=== PATIENT | female | born 1995 | race Caucasian/White ===

== ENCOUNTER 2016-06-30 19:01 | Emergency (ER) | payer MEDICAID ==
[~2016-06-30] VITALS: Ht 157.5 cm; Wt 97.5 kg
[~2016-06-30 19:01] MED LIST: PREN1TAB62 PO
[2016-06-30 19:26] VITALS: Ht 157.5 cm; Wt 97.5 kg
[2016-07-01] MEDS ORDERED: ONDANSETRON (ODT) 4 MG TAB ODT STA (02:17)
[2016-07-01 02:46] LABS: URINE BLOOD (Dip) POC Negative (NEGATIVE)
[2016-07-01] MEDS ORDERED: ONDA4TAB14 PO (04:39)
--- NOTE | 2016-07-01 04:39 | ERD ---
ER Documentation Chief Complaint Date/Time DATE: 07/01/16 TIME: 04:35 Chief Complaint FEVER, EPIGASTRIC ABD PAIN, N/V X 2 DAYS HPI This pleasant 21-year-old female presents to emergency department today with abdominal pain, nausea, and diarrhea 2 days. Patient reports vomiting twice today. Has decreased appetite and pain in her upper stomach with eating. Patient has tried no [id number] medication for symptomatic relief, denies history of GERD, denies any recent travel, denies possibility of contaminated food. ROS All systems reviewed and are negative except as per history of present illness. Medications Home Meds Active Scripts Ondansetron (Ondansetron Odt) 4 Mg Tab.rapdis, 4 MG PO Q6H Y for NAUSEA AND/OR VOMITING, #10 TAB Prov:IFEOMA,JOANNA 07/01/16 Reported Medications Vit-Iron Fumarate-FA ( Vitamin Tablet) 1 Each Tablet, 1 EACH PO DAILY 05/31/13 Allergies Allergies: Coded Allergies: No Known Allergy (Unverified , 05/31/13) PMhx/Soc Medical and Surgical Hx: pt denies Medical Hx, pt denies Surgical Hx History of Surgery: No (PT DENIES MEDICAL AND SURGICAL HX.) Hx Alcohol Use: No Hx Substance Use: No Hx Tobacco Use: No Smoking Status: Never smoker Physical Exam Vitals Vitals stable, triage notes reviewed Physical Exam Const: No acute distress Head: Atraumatic Eyes: Normal Conjunctiva, PERRLA, EOMI ENT: Normal External Ears, Nose and Mouth. Mucous membranes moist Neck: Resp: Chest rises and falls symmetrically, clear to auscultation bilaterally no respiratory distress Cardio: Regular rate and rhythm, no murmurs Abd: Epigastric tenderness, no psoas sign, no Lock's point tenderness, no CVA tenderness Skin: Back: Ext: Neur: Awake and alert Psych: Normal Mood and Affect Results 24 hrs Laboratory Tests Test 07/01/16 02:47 Bedside Urine pH (LAB) 5.5 Bedside Urine Protein (LAB) Negative Bedside Urine Glucose (UA) Negative Bedside Urine Ketones (LAB) Negative Bedside Urine Blood Negative Bedside Urine Nitrite (LAB) Negative Bedside Urine Leukocyte Esterase (L Trace Current Medications Medications (Trade) Dose Ordered Sig/Mandy Route PRN Reason Start Time Stop Time Status Last Admin Dose Admin Ondansetron HCl (Zofran Odt) 4 mg ONCE STAT ODT 07/01/16 02:17 07/01/16 02:19 DC 07/01/16 02:37 Acetaminophen (Tylenol Tab) 650 mg ONCE ONCE PO 07/01/16 05:00 07/01/16 05:01 DC 07/01/16 05:02 Interpretation text Urinalysis normal, trace leukocytes seen suspected contamination. Procedures/MDM This pleasant 21-year-old female presents to the emergency department today with 2 day history of epigastric pain, nausea vomiting. Patient is tried no [id number] medication for symptomatic relief, denies eating spicy food, has had similar pain in the past. Patient denies chest pain, shortness of breath, dizziness, or cough. Urinary tract infection is not suspected, urinalysis positive for trace leukocytosis likely normal vaginal bacteria. Patient treated with Zofran effectively in emergency department, able to tolerate 120 cc of water prior to discharge. Patient will be discharged home with short dose of Zofran, diet discussed, rest, lifestyle modifications discussed. I feel the patient is stable for discharge and outpatient management by primary care physician, return to emergency department for chest pain, shortness of breath, irretractable vomiting, fever, chills.. I have discussed results, examination findings, the treatment plan with the patient and family present prior to discharge. Indications for emergent reevaluation, side effects of medication were also discussed. All questions were answered. Patient verbalizes understanding and agrees with plan of care. Departure Diagnosis: Primary Impression: Nausea & vomiting Vomiting type: unspecified Vomiting Intractability: non-intractable Qualified Code: R11.2 - Non-intractable vomiting with nausea, unspecified vomiting type Condition: Good Patient Instructions: Nausea and Vomiting-Adult Additional Instructions: Thank you for for coming to [facility] for your care today. Please ask your nurse or provider if you have questions about your care today and do not leave until all your questions have been answered. Please use any medications given as directed and follow-up with your doctor (or the doctor you were referred to) in the next 2-3 days. If you do not have a primary care doctor [place] [facility] [place] You may also use motrin and tylenol as needed for fever and/or pain unless instructed otherwise by your provider or nurse. Indications for more urgent follow-up have been discussed, but you may return to the Emergency Department at ANY time for any worrisome or worsening symptoms. If you have abdominal pain, please know that no test or exam you received is perfect and you should follow up within 8 hours for continued pain. If you had any imaging studies today, such as an X-Ray or CT Scan, these studies will be reviewed later by a radiologist. You will be called if there are important findings that were not identified today, so make sure the contact information you provided at registration is correct. If you received any narcotic pain control medicine today, such as Vicodin, Morphine or Dilaudid, your coordination and judgment may be affected for a number of hours. Please do not drive or operate heavy machinery, and you may want someone to assist you at home. If you were given a prescription for narcotic medication, be aware that it is very addictive- use sparingly and only if necessary. JOANNA DIA July 01, 2016 04:38
[2016-07-01 04:53] VITALS: BP 107/88; PULSE 98; RESP 18; TEMP 98.4
[2016-07-01] MEDS ORDERED: ACETAMINOPHEN 325 MG TAB PO ONE (05:00)
== END 2016-07-01 05:08 | disposition home or self-care (01) ==
LOC: FTE 19:01
DX: R11.2 Nausea with vomiting, unspecified (principal)
CPT/HCPCS: 81003; Z7610; 99283